=== PATIENT | male | born 1995 | race Caucasian/White ===

== ENCOUNTER 2021-04-25 18:37 | Emergency (ER) | payer OTHER ==
[~2021-04-25] VITALS: Ht 177.8 cm; Wt 99.8 kg
[~2021-04-25 18:37] MED LIST: MONDOXYNE NL100 MG PO
== END 2021-04-25 19:50 | disposition home or self-care (01) ==
LOC: ER 18:37
DX: T23.272A Burn of second degree of left wrist, initial encounter (principal); T22.212A Burn of second degree of left forearm, initial encounter; T31.0 Burns involving less than 10% of body surface; Z23 Encounter for immunization; X16.XXXA Contact with hot heating appliances, radiators and pipes, initial encounter
CPT/HCPCS: 16020; 90471; 90714; 99283